=== PATIENT | female | born 1950 | race Caucasian/White ===

== ENCOUNTER 2016-06-02 01:56 | Emergency (ER) ==
[2016-06-02] MEDS ORDERED: DEXTROSE 5%-NS IV SOLUTION 1,000 ML IV STA (01:58)
[2016-06-02] MEDS ORDERED: DEXTROSE 50%-WATER ABBOJECT IVP STA (01:59)
[2016-06-02 02:08] LABS: BASOPHILS % (AUTO) 0.3 % (0.0-3.0); HEMATOCRIT 41.3 % (37.0-47.0); HEMOGLOBIN 13.4 g/dl (12.0-16.0); IMMATURE GRANULOCYTE % (AUTO) 1.7 % (0.0-5.0); LYMPHOCYTES # (AUTO) 1.2 K/uL (0.60-3.4); LYMPHOCYTES % (AUTO) 8.8 (10.0-50.0); MEAN CORPUSCULAR HEMOGLOBIN 29.5 pg (27.0-31.0); MEAN CORPUSCULAR HGB CONC 32.4 (31.8-35.4); MEAN CORPUSCULAR VOLUME 90.8 fl (81.0-99.0); MONOCYTES % (AUTO) 7.2 (0-10); NEUTROPHILS # (AUTO) 11.1 K/ul (2.0-6.9); PLATELET COUNT 154 10^3/uL (140-440); RED BLOOD COUNT 4.55 10^6/ul (4.20-5.40); WHITE BLOOD COUNT 13.48 K/ul (4.6-10.2)
[2016-06-02 02:14] LABS: ABG BASE EXCESS 13 (-2.0-2.0); ABG PCO2 46.9 mmHg (35-45); ABG PH 7.498 (7.35-7.45)
[2016-06-02 02:15] LABS: ABG HCO3 36.4 (22.0-26.0); ABG TCO2 38 (22.0-28.0)
[2016-06-02 02:21] VITALS: BMI 30.4
[2016-06-02 02:43] LABS: ALBUMIN/GLOBULIN RATIO 1.07; ANION GAP 12.5; BILIRUBIN,TOTAL 3.07 mg/dL (0.00-1.20); BUN/CREATININE RATIO 10.09; CALCIUM 9.2 mg/dL (8.2-10.2); CREATININE 1.09 mg/dL (0.60-1.30); TOTAL PROTEIN 5.8 g/dL (5.8-8.1); TROPONIN I 0.074 ng/ml (0.0000-0.4000)
[2016-06-02 02:57] LABS: POTASSIUM 2.5 mmol/L (3.5-5.10)
[2016-06-02] MEDS ORDERED: POTASSIUM CHLORIDE 10 MEQ VIAL-ADDITIVE ONLY 20 MEQ in SODIUM CHLORIDE 1,000 ML IV STA (02:59)
[2016-06-02] MEDS ORDERED: URO-JET MUCOUSMEMB STA (03:05)
--- NOTE | 2016-06-02 03:12 | ED.PDOC ---
General ED Provider: Dr. MILA BARRIOS-ER Chief Complaint: Hypoglycemia Stated Complaint: unresponsive--hx of hypoglycemia--bs "low" and then 20--ems unable tostart iv--given im glucagon-- Time Seen by Physician: 02:15 Mode of Arrival: Ambulance Information Source: EMT Exam Limitations: No limitations Primary Care Provider: [facility] Nursing and Triage Documentation Reviewed and Agree: Yes Neurological Complaint Exam - Altered Mental Status Complaint/Exam Current Mental Status: Unresponsiveness Last Known Well: 6:30 last nite Onset: Gradual Symptoms Are: Still present Timing: Constant Episodes Lasting: Hours Initial Severity: Mild Current Severity: Moderate Eye Deviation Present: No Character: Reports: Confusion, Agitation, Responsiveness, Lethargy Aggravating: Reports: Unknown Alleviating: Reports: None Associated Signs and Symptoms: Denies: Dizziness, Weakness, Headache, Fever, Illness, Nuchal rigidity, Nausea, Vomiting, Recently depressed, Trauma Related History: Reports: Similar episode Cardiac Risk Factors: Reports: Diabetes CVA Risk Factors: Reports: Diabetes Related Surgical History: Reports: None Carotid Bruit Present: No Nystagmus Present: No Focal Weakness: Present: None Focal Sensory Loss: Present: None Gait: Abnormal Romberg Test Positive: No Babinski Sign: Negative Right, Negative Left Heel to Toe Normal: No Signs of Injury: Present: Normal findings Thrombolytics Considered: No Differential Diagnoses: Hypoxia, Metabolic Disorder, Hypoglycemia, CVA Review of Systems - Review Of Systems Constitutional: Reports: No symptoms Eyes: Reports: No symptoms Ears, Nose, Mouth, Throat: Reports: No symptoms Respiratory: Reports: No symptoms Cardiac: Reports: No symptoms GI: Reports: No symptoms : Reports: No symptoms Musculoskeletal: Reports: No symptoms Skin: Reports: No symptoms Neurological: Reports: Cognitive dysfunction Endocrine: Reports: No symptoms Hematologic/Lymphatic: Reports: No symptoms All Other Systems: Reviewed and Negative Past Medical History - Past Medical History Endocrine: Reports: DM 1 Cardiovascular: Reports: Unknown Respiratory: Reports: Unknown Hematological: Reports: Unknown Gastrointestinal: Reports: Unknown Genitourinary: Reports: Unknown Neuro/Psych: Reports: Unknown Musculoskeletal: Reports: Unknown Cancer: Reports: Unknown Last Menstrual Period: UNKNOWN - Surgical History General Surgical History: Reports: Unknown - Family History Family History: Reports: Unknown - Social History Smoking Status: Former smoker Hx Substance Use: No Alcohol Screening: None Lives: With family - Immunizations Tetanus Shot up to Date: (UNKNOWN) Physical Exam - Physical Exam Appearance: Well-appearing, No pain distress, Well-nourished Eyes: ANA, EOMI, Conjunctiva clear ENT: Ears normal, Nose normal, Oropharynx normal Neck: Supple Respiratory: Airway patent, Breath sounds clear, Breath sounds equal, Respirations nonlabored Cardiovascular: RRR GI/: Soft, Nontender, No masses, Bowel sounds normal, No Organomegaly Musculoskeletal: Normal strength Skin: Warm, Dry, Normal color Neurological: Sensation intact, Motor intact, Reflexes intact, Cranial nerves intact, Alert, Oriented Psychiatric: Affect appropriate Procedures - Intubation Indication: Present: Altered Mental Status, Airway Protection Cricoid Pressure Used: Yes Tube Kathleen Used: Yes Number of Attempts: 1 Suction Used: Yes Glidescope Used: Yes CO2 Detector Used: Yes Lung Sounds Equal Bilaterally: Yes Intubation Complications: Present: No complications Tube Inserted By: wes wen Tube Placement Verified by X-ray: Yes Critical Care Note - Critical Care Note Total Time (mins): 30 Course - Course Hematology/Chemistry: 06/02/16 02:00 06/02/16 02:00 Orders, Labs, Meds: Lab Review 06/02/16 06/02/16 01:57 02:00 WBC 13.48 H RBC 4.55 Hgb 13.4 Hct 41.3 MCV 90.8 MCH 29.5 MCHC 32.4 RDW Coeff of Jens 18.1 H Plt Count 154 Immature Gran % (Auto) 1.7 Neut % (Auto) 82.0 Lymph % (Auto) 8.8 L Dixie % (Auto) 7.2 Eos % (Auto) 0.0 Baso % (Auto) 0.3 Immature Gran # (Auto) 0.2 Neut # 11.1 H Lymph # 1.2 Dixie # 1.0 Eos # 0.0 Baso # 0.0 D-Dimer 0.74 Puncture Site Lb O2 Saturation 98.0 ABG pH 7.498 H ABG pCO2 46.9 H ABG pO2 93.0 ABG HCO3 36.4 H ABG Total CO2 38 H ABG Base Excess 13 H Josue Test + O2 Delivery Device Bag Oxygen Liter Flow 15.00 FiO2 % 100.0 Sodium 150 H Potassium 2.5 L* Chloride 104 Carbon Dioxide 36 H Anion Gap 12.5 BUN 11 Creatinine 1.09 Estimated GFR (MDRD) 50.00 BUN/Creatinine Ratio 10.09 Glucose 317 H Calcium 9.2 Total Bilirubin 3.07 H AST 225 H ALT 215 H Alkaline Phosphatase 519 H Total Creatine Kinase 131 CK-MB (CK-2) Pending CK-MB (CK-2) % Pending Troponin I 0.0740 Total Protein 5.8 Albumin 3.0 L Globulin 2.8 Albumin/Globulin Ratio 1.07 Orders Category Date Time Status ABG DRAW REQUEST Stat CARDIO 06/02/16 01:57 Ordered EKG-(ED ONLY) Stat CARDIO 06/02/16 01:57 Ordered ACCUCHECK (ED) [ED ACCUCHECK ASSESSMENT] .ONCE EMERGENCY 06/02/16 02:00 Active ACCUCHECK (ED) [ED ACCUCHECK ASSESSMENT] .ONCE EMERGENCY 06/02/16 02:00 Active 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] .ONCE EMERGENCY 06/02/16 02:16 Active ED IV/MEDIPORT/POWERPORT .ONCE EMERGENCY 06/02/16 01:58 Active Schwarz [ED CATHETER INSERTION AND CARE] .ONCE EMERGENCY 06/02/16 03:05 Active ABG Stat LAB 06/02/16 01:57 Completed BLOOD CULTURE Stat LAB 06/02/16 02:02 Ordered CBC W/ AUTO DIFF Stat LAB 06/02/16 02:00 Completed COMPREHENSIVE METABOLIC PANEL Stat LAB 06/02/16 02:00 Results CREATINE KINASE Stat LAB 06/02/16 02:00 Results D-DIMER Stat LAB 06/02/16 02:00 Completed PROCALCITONIN Stat LAB 06/02/16 Ordered TROPONIN I Stat LAB 06/02/16 02:00 Results URINALYSIS C & S IF INDICATED Stat LAB 06/02/16 01:57 Uncollected URINE DRUG SCREEN (RAPID FOR ED) [DRUG SCREEN, URINE, LAB 06/02/16 02:00 Uncollected RAPID] Stat 0.9 % Sodium Chloride [Saline Flush] MEDS 06/02/16 01:58 Ordered 1 syr IVF PRN PRN Dextrose 5 % and 0.9 % NaCl [Dextrose 5%-Ns IV Solution MEDS 06/02/16 01:58 Discontinued ] 1,000 ml IV 100 mls/hr Dextrose 50 % in Water [Dextrose 50%-Water Abboject] MEDS 06/02/16 01:59 Discontinued 50 ml IVP ONCE STA Lidocaine HCl [Uro-Jet] MEDS 06/02/16 03:05 Discontinued 10 ml MUCOUSMEMB ONCE STA Sodium Chloride 0.9% [Sodium Chloride] 1,000 ml MEDS 06/02/16 02:59 Active Potassium Chloride Additive [Potassium Chloride 10 Meq Vial-Additive Only] 20 meq IV 100 mls/hr CT CHEST W/O CONTRAST Stat RADS 06/02/16 02:[address] HEAD W/O CONTRAST Stat RADS 06/02/16 02:00 Taken Medications Generic Name Dose Route Start Last Admin Trade Name Freq PRN Reason Stop Dose Admin Potassium Chloride 20 meq/ 1,010 mls @ 100 mls/hr 06/02/16 02:59 Sodium Chloride IV 06/02/16 13:04 .Q10H6M STA Sodium Chloride 1 syr 06/02/16 01:58 06/02/16 02:00 Saline Flush IVF 1 syr PRN PRN Administration To flush IV Discontinued Medications Generic Name Dose Route Start Last Admin Trade Name Freq PRN Reason Stop Dose Admin Dextrose 50 ml 06/02/16 01:59 06/02/16 01:56 Dextrose 50%-Water Abboject IVP 06/02/16 02:00 50 ml ONCE STA Administration Dextrose/Sodium Chloride 1,000 mls @ 100 mls/hr 06/02/16 01:58 06/02/16 02:52 Dextrose 5%-Ns Iv Solution IV 06/02/16 11:57 1,000 mls/hr .Q10H STA Administration Lidocaine HCl 10 ml 06/02/16 03:05 Uro-Jet MUCOUSMEMB 06/02/16 03:06 ONCE STA Vital Signs: Temp Pulse Resp BP Pulse Ox 06/02/16 02:12 97.6 F 71 14 132/62 100 Departure - Departure Time of Disposition: 03:14 Disposition: TSF SHORT-TRM HOSP Discharge Problem: Altered mental status Qualifiers: Altered mental status type: stupor Qualifier Code: (R40.1) Stupor Instructions: Altered Mental Status (ED) Condition: Stable Pt referred to PMD for follow-up: No Allergies/Adverse Reactions: Allergies clindamycin Adverse Reaction (Verified 06/02/16 02:32) Latex, Natural Rubber Adverse Reaction (Verified 06/02/16 02:32) Home Medications: Ambulatory Orders 1 [Unobtainable] 06/02/16 Transfer Form Completed: Yes Disposition Discussed With: Family
[2016-06-02 03:14] LABS: CREATINE KINASE MB 2.6 ng/ml (0.0-3.6)
--- NOTE | 2016-06-02 03:16 | CT ---
EXAM: CT head without contrast. HISTORY: Unresponsive. History of lung cancer. PROCEDURE: Contiguous axial CT images of the head without contrast with coronal and sagittal reform ats. FINDINGS: The exam is limited without IV contrast. There is mild diffuse cerebral atrophy. The ve ntricles and basal cisterns are normal in size and configuration. No evidence of mass or midline sh ift. No intracranial hemorrhage or evidence of large vessel infarct. No extra-axial fluid collecti on. There is a left basal ganglia calcification. The paranasal sinuses and mastoid air cells are w ell-aerated. Impression: No intracranial hemorrhage or evidence of large vessel infarct. Mild diffuse cerebral atrophy.
[2016-06-02 03:18] LABS: BILIRUBIN,URINE Negative (NEGATIVE); KETONES,URINE Negative (NEGATIVE); LEUKOCYTE ESTERASE ,URINE Negative (NEGATIVE); NITRITE,URINE Negative (NEGATIVE); PROTEIN,URINE Negative (NEGATIVE); URINE, BLOOD Trace-lysed (NEGATIVE)
[2016-06-02 03:19] LABS: ADD URINE MICROSCOPIC YES
--- NOTE | 2016-06-02 03:20 | CT ---
EXAM: CT of the chest without contrast. HISTORY: Unresponsive. History of lung cancer. PROCEDURE: Contiguous axial CT images of the chest without contrast with coronal and sagittal refor mats. FINDINGS: Comparison made with CT chest of 05/23/2016. There is motion artifact which limits the ex am. The heart is within normal limits in size. The thoracic aorta is within normal limits in diamet er. There is a moderate hiatal hernia. There is minimal bilateral atelectasis and/or pneumonia. R edemonstrated are multiple bilateral lung nodules, some of which are increased in size. There are de generative changes in the spine. The right central line is in adequate position. Impression: Minimal bilateral atelectasis and/or pneumonia. Metastatic disease as described. Moderate hiatal hernia.
[2016-06-02 03:28] LABS: COCAIN SCREEN,URINE NEGATIVE (NEGATIVE)
--- NOTE | 2016-06-02 03:55 | ED.PDOC ---
Procedures - Intubation Medications: Yes: Succinylcholine (60 mg Anectine @0342 waste 140mg), Propofol ( 20mg @0342 waste 180mg) Type of Tube Used: Endotracheal Tube Size: 7 Cricoid Pressure Used: No Tube Kathleen Used: Yes Position of Tube at Lip: 22 Number of Attempts: 1 Suction Used: No Glidescope Used: No CO2 Detector Used: Yes Lung Sounds Equal Bilaterally: Yes Intubation Complications: Present: No complications Tube Inserted By: Campbell Sun CRNA Tube Placement Verified by X-ray: Yes Conscious Sedation - Pre-op Assessment Weight: 200 lb Surgical History: PARTIAL HYSTERECTOMY. RIGHT BREAST LUMPECTOMY - Medical History Past Medical History: Diabetes, Cancer, COPD, GERD Other History: LUNG CANCER RIGHT BREAST CANCER 10 YEARS AGO - Physical Exam Heart Rate/Rhythm: Regular Rhythm, Bradycardia
[2016-06-02] MEDS ORDERED: DIPRIVAN 20 ML VIAL IVP STA (03:58)
[2016-06-02] MEDS ORDERED: ANECTINE IVP STA (03:59)
[2016-06-02 04:23] VITALS: BP 108/97; TEMP 96.2
[2016-06-02] MEDS ORDERED: ATIVAN IVP STA (04:57)
[2016-06-02] MEDS ORDERED: ATIVAN ONE (05:04)
--- NOTE | 2016-06-03 13:27 | DI ---
EXAM: AP single view of the chest. HISTORY: Endotracheal tube placement. FINDINGS: The endotracheal tube is in adequate position. The right-sided central line is positione d with the tip at the level of the right atrium. The bony structures are unremarkable. The cardiac silhouette and pulmonary vasculature are within normal limits. The costophrenic angles are clear. There are calcified granulomas. No infiltrate or consolidation. Impression: No acute cardiopulmonary disease. Tubes and lines as described.
== END 2016-06-02 05:10 | disposition short-term general hospital (02) ==
LOC: ED 01:56
DX: R40.1 Stupor (principal); E16.2 Hypoglycemia, unspecified; E10.9 Type 1 diabetes mellitus without complications; Z86.39 Personal history of other endocrine, nutritional and metabolic disease
CPT/HCPCS: 36415; 80053; 80306; 81001; 82550; 82553; 82803; 82962; 84145; 84484; 85025; 85379; 87040; 93005; 93010; 96361; 96374; 96375; 99291

== ENCOUNTER 2016-06-02 05:10 | Outpatient (CLI) ==
[2016-06-02 02:21] VITALS: BMI 30.4
== END 2016-06-02 05:11 ==
LOC: AMBL 05:10
PROVIDERS: ATTEND Family Medicine
DX: R40.4 Transient alteration of awareness (principal); E16.2 Hypoglycemia, unspecified; R25.1 Tremor, unspecified; R00.0 Tachycardia, unspecified; R40.2431 Glasgow coma scale score 3-8, in the field [EMT or ambulance]